=== PATIENT | female | born 1990 | race Caucasian/White ===

== ENCOUNTER 2016-12-04 06:14 | Inpatient (IN) | payer BC ==
[~2016-12-04] VITALS: Ht 170.2 cm; Wt 95.5 kg
[2016-12-04] VITALS (41 sets, daily range): BP systolic 112–154; BP diastolic 63–97; PULSE 74–126; TEMP 97.7–100.6
[2016-12-04] MEDS ORDERED: PRENATAL (06:44)
[2016-12-04 08:10] LABS: BASO # 0.1 (0.0-0.2); BASO % 0.8 % (0.0-2.0); EOS # 0.3 (0.0-0.7); GRAN # 4.1 (1.4-6.5); GRAN % 61.5 % (42.2-75.2); HEMOGLOBIN 12.5 g/dl (12.5-16.0); LYMPH # 1.6 (1.2-3.4); LYMPH % 23.9 % (20.0-51.0); MEAN CELL VOLUME 85 fl (80.0-100.0); MEAN CORPUSCULAR HEMOGLOBIN 29 pg (27.0-31.0); MEAN CORPUSCULAR HGB CONC 34 g/dl (33.0-37.0); MONO # 0.6 (0.1-0.6); MONO % 9.3 % (1.7-9.3); PLATELET COUNT 232 K/mm3 (130-400); RED BLOOD COUNT 4.31 M/mm3 (4.10-5.30); REDCELL DISTRIBUTION WIDTH-CV 12.9 % (11.5-14.5); WHITE BLOOD COUNT 6.6 K/mm3 (4.8-10.8)
[2016-12-04 08:17] LABS: HEMATOCRIT 36.8 % (37.0-47.0)
[2016-12-05] VITALS: BP 134/78; PULSE 75; TEMP 98.5
[2016-12-05 04:55] VITALS: BP 137/87; PULSE 83; TEMP 98.1
[2016-12-05 07:00] VITALS: BP 129/84; PULSE 80; TEMP 98.2
[2016-12-05 07:52] LABS: BASO # 0.1 (0.0-0.2); BASO % 0.4 % (0.0-2.0); EOS # 0.1 (0.0-0.7); EOS % 0.5 % (0-4.0); GRAN # 12.8 (1.4-6.5); HEMOGLOBIN 12.1 g/dl (12.5-16.0); LYMPH # 1.3 (1.2-3.4); LYMPH % 8.5 % (20.0-51.0); MEAN CELL VOLUME 86 fl (80.0-100.0); MEAN CORPUSCULAR HEMOGLOBIN 29 pg (27.0-31.0); MEAN CORPUSCULAR HGB CONC 34 g/dl (33.0-37.0); MEAN PLATELET VOLUME 10.4 fl (7.4-10.4); MONO # 0.7 (0.1-0.6); MONO % 4.9 % (1.7-9.3); PLATELET COUNT 229 K/mm3 (130-400); RED BLOOD COUNT 4.16 M/mm3 (4.10-5.30); REDCELL DISTRIBUTION WIDTH-CV 13.2 % (11.5-14.5)
[2016-12-05 07:54] LABS: HEMATOCRIT 35.9 % (37.0-47.0)
[2016-12-05 15:00] VITALS: BP 122/75; PULSE 92
[2016-12-05] MEDS ORDERED: PERCOCET 325 MG1 TA2 PO (15:55)
[2016-12-05] MEDS ORDERED: IBU600 MG PO (15:55)
[2016-12-05 22:30] VITALS: BP 118/81; PULSE 75; TEMP 97.7
[2016-12-06 07:00] VITALS: BP 129/87; PULSE 74; TEMP 97.5
== END 2016-12-06 12:30 | disposition home or self-care (01) | DRG 775 ==
LOC: LDRO 06:14 → OB 06:15 → LDR 06:15 → OB 18:50
PROVIDERS: Obstetrics & Gynecology
PROC: 10E0XZZ Delivery of Products of Conception, External Approach (ICD-10-PCS; principal; 2016-12-04)
PROC: 0KQM0ZZ Repair Perineum Muscle, Open Approach (ICD-10-PCS; 2016-12-04)
DX: O99.824 Streptococcus B carrier state complicating childbirth (principal); O70.1 Second degree perineal laceration during delivery; Z3A.39 39 weeks gestation of pregnancy; Z37.0 Single live birth
CPT/HCPCS: J2590; J7120

== ENCOUNTER 2021-07-08 22:42 | Inpatient (IN) | payer OTHER ==
[~2021-07-08] VITALS: Ht 167.6 cm; Wt 95.0 kg
[~2021-07-08 22:42] MED LIST: IBU600 MG PO; PERCOCET 325 MG1 TA2 PO; PRENATAL
[2021-07-08 23:15] VITALS: BP 131/92; PULSE 85; TEMP 98.9
[2021-07-08] MEDS ORDERED: WELLBUTRIN XL300 M1 PO (23:25)
[2021-07-08] MEDS ORDERED: LEXAPRO 5MG5 MG PO (23:25)
[2021-07-08 23:30] VITALS: BP 130/88; PULSE 90
--- NOTE | 2021-07-08 23:45 | NUR ---
18G IV started in left hand with 1 attempt. Admission labs obtained off IV start. Lactated ringers infusing to gravity. Consents reviewed and signed at this time. All questions answered Rasheeda Wakefield, CLIENT RENEWAL SPECIALIST notified for epidural, will come to bedside.
[2021-07-08 23:59] LABS: BASO % 0.4 % (0.0-2.0); EOS # 0.2 K/mm3 (0.0-0.7); GRAN # 5.1 K/mm3 (1.4-6.5); GRAN % 68.3 % (42.2-75.2); HEMATOCRIT 32.8 % (37.0-47.0); LYMPH # 1.4 K/mm3 (1.2-3.4); LYMPH % 18.9 % (20.0-51.0); MEAN CELL VOLUME 85 fl (80.0-100.0); MEAN CORPUSCULAR HEMOGLOBIN 29 pg (27-31); MEAN CORPUSCULAR HGB CONC 34 g/dl (33.0-37.0); MEAN PLATELET VOLUME 10.9 fl (7.4-10.4); MONO # 0.7 K/mm3 (0.1-0.6); PLATELET COUNT 261 K/mm3 (130-400); RED BLOOD COUNT 3.85 M/mm3 (4.10-5.30); REDCELL DISTRIBUTION WIDTH-CV 13.5 % (11.5-14.5)
[2021-07-09] VITALS (20 sets, daily range): BP systolic 115–133; BP diastolic 66–91; PULSE 72–105; TEMP 97.4–98.6
--- NOTE | 2021-07-09 00:07 | NUR ---
0007 - BEATRIZ Altamirano at bedside. Epidural procedure, risks, and benefits reviewed, pt verbalized understanding. Pt positioned to sitting on edge of bed. 0012 - Single shot by BEATRIZ Altamirano. Pt denies adverse reactions. 0018 - Pt positioned to wedge right for comfort. Monitors adjusted. Safety precautions reviewed. Bed in low and locked position, call light within reach. See anesthesia record.
--- NOTE | 2021-07-09 00:30 | NUR ---
0030 - late deceleration down to 100 bpm, repositioned to left lateral. Return to baseline of 115 bpm after 3 minutes.
--- NOTE | 2021-07-09 00:50 | NUR ---
0050 - RN to bedside. Pt reports she is feeling pressure like she needs to push. SVE 10/100/+2. Pt positioned back to left lateral. Dr. Oh notified, see physician notification.
--- NOTE | 2021-07-09 01:43 | NUR ---
0110 - Dr. Oh at bedside gowned and gloved. Pt educated on pushing techniques, verbalized understanding. Positioned into footplates. 0113 - Initial push at this time, good maternal effort. Nursery RN at bedside 0120 - Verbal orders from Dr. Oh to initiate pitocin at 2 mu/min. 0123 - Late deceleration after contraction down to 80 bpm for about 2 minutes before returned to baseline of 115 bpm. 0125 - Straight catheter by Dr. Oh. 500 mL clear, yellow urine out. 0140 - Recurrent late decelerations down to 90 bpm after contractions. Increase in HR with scalp stimulation by Dr. Oh. Verbal orders to increase pitocin to 4 mu/min. 0143 - Difficulty determining baseline FHR. Spontaneous vaginal delivery of viable boy. Infant placed to mothers abdomen, care of infant assumed to MICHELLE Brice. Cord clamped x [address] Oh and cut by FOB. Cord blood obtained. Pitocin off. 0147 - Spontaneous delivery of intact placenta. Fundal massage by Dr. Oh. Pitocin restarted at 333 mL/hr. Second degree perineal laceration repaired by Dr. Oh. Epidural off. 0200 - Pericare provided. New chux and ice pack beneath patient. Pt positioned in bed for comfort. recovery started. See physician delivery note.
--- NOTE | 2021-07-09 04:00 | NUR ---
Pt able to lift and hold each leg off of bed for 5 seconds. Repositioned to sitting on edge of bed. Epidural catheter removed. Tip smooth, blue, and intact. Pt able to ambulate to bathroom with stand by assistance. Pt unable to void at this time. Pericare explained and provided. Mesh panties and peripad applied. Clean gown on. Pt transferred to room 218 by wheelchair with belongings.
[2021-07-10 01:30] VITALS: BP 117/84; PULSE 81; TEMP 98.4
[2021-07-10 07:00] VITALS: BP 125/79; PULSE 75; TEMP 97.5
[2021-07-10] MEDS ORDERED: MOTRIN 800800 MG/TAB PO (08:30)
--- NOTE | 2021-07-10 10:08 | NUR ---
DISCHARGE TEACHING COMPLETED. EDUCATED TO CALL OFFICE ON SUNDAY TO MAKE 6 WEEK FOLLOW UP APPOINTMENT. INSTRUCTED ON PRESCRIPTION. QUESTIONS INVITED AND ANSWERED.
== END 2021-07-10 10:20 | disposition home or self-care (01) | DRG 807 ==
LOC: LDRO 22:42 → LDR 23:21 → OB 07-09 04:47
PROVIDERS: Student in an Organized Health Care Education/Training Program; ADMIT Obstetrics & Gynecology
PROC: 10E0XZZ Delivery of Products of Conception, External Approach (ICD-10-PCS; principal; 2021-07-08)
PROC: 0KQM0ZZ Repair Perineum Muscle, Open Approach (ICD-10-PCS; 2021-07-08)
DX: O99.344 Other mental disorders complicating childbirth (principal); Z37.0 Single live birth; F41.9 Anxiety disorder, unspecified; O70.1 Second degree perineal laceration during delivery; O69.2XX0 Labor and delivery complicated by other cord entanglement, with compression, not applicable or unspecified; Z3A.38 38 weeks gestation of pregnancy
CPT/HCPCS: J2590; J7120